=== PATIENT | female | born 1995 | race African-American/Black ===

== ENCOUNTER 2023-03-16 00:27 | Emergency (ER) | payer SELFPAY ==
[~2023-03-16] VITALS: Ht 172.7 cm; Wt 113.6 kg
[2023-03-16 02:08] VITALS: BP 119/52; PULSE 110; TEMP 98.7
== END 2023-03-16 02:08 | disposition home or self-care (01) ==
LOC: COL.ER 00:27
DX: J45.901 Unspecified asthma with (acute) exacerbation (principal); Z79.899 Other long term (current) drug therapy; Z87.891 Personal history of nicotine dependence